=== PATIENT | female | born 1945 | race Two or more races ===

== ENCOUNTER 2023-02-08 16:12 | Emergency (ER) | payer MEDICARE, OTHER ==
[~2023-02-08] VITALS: Ht 139.7 cm; Wt 39.0 kg
--- NOTE | 2023-02-08 16:15 | NUR ---
BIB FAMILY FOR EVAL AND TREATMENT OF LEFT LEG PAIN SINCE YESTERDAY,DENIES ANY TRAUMA,HAS ARTHRITIS PER SON.
[2023-02-08] MEDS ORDERED: KETOROLAC TROMETHAMINE INJ 30 MG/ML VIAL ONE (16:40)
--- NOTE | 2023-02-08 16:45 | NUR ---
X-RAY TECH AT BEDSIDE
[2023-02-08] MEDS ORDERED: KETOROLAC TROMETHAMINE INJ 60 MG/2 ML VIAL IM ONE (17:00)
--- NOTE | 2023-02-08 18:15 | NUR ---
Patient discharged to home in stable condition. Written and verbal after care instructions given. Patient FAMILY understanding of instruction.
[2023-02-08 18:58] VITALS: BP 110/63
== END 2023-02-08 18:15 | disposition home or self-care (01) ==
LOC: ER 16:12
DX: M25.552 Pain in left hip (principal); I10 Essential (primary) hypertension
CPT/HCPCS: 99284; 96372; 73552; 73501; J1885; 73020